=== PATIENT | female | born 1980 ===

== ENCOUNTER 2020-01-20 11:02 | Emergency (ER) | payer OTHER, MEDICAID, SELFPAY ==
--- NOTE | 2020-01-20 11:26 | PC.NURSE ---
patient living in [facility] right now, check carbon monoxide, reading is 0.
--- NOTE | 2020-01-20 12:13 | PC.NURSE ---
called patient name in waiting area, no response.
== END 2020-01-20 13:37 | disposition left against medical advice (07) ==
PROVIDERS: Emergency Provider Emergency Medicine
CPT/HCPCS: 99281